=== PATIENT | male | born 1990 | race Caucasian/White ===

== ENCOUNTER 2017-03-08 07:47 | Emergency (ER) | payer OTHER ==
[~2017-03-08] VITALS: Ht 200.7 cm; Wt 159.0 kg
[2017-03-08] MEDS ORDERED: PERCOCET 5/31 TABLET PO (09:29)
[2017-03-08 10:42] VITALS: BP 122/76
== END 2017-03-08 10:44 | disposition home or self-care (01) ==
LOC: EME 07:47
PROC: 2W3QX1Z Immobilization of Right Lower Leg using Splint (ICD-10-PCS; principal; 2017-03-08)
DX: S82.831A Other fracture of upper and lower end of right fibula, initial encounter for closed fracture (principal); X50.1XXA Overexertion from prolonged static or awkward postures, initial encounter
CPT/HCPCS: 73610; 99281; 99283